=== PATIENT | female | born 1990 | race Caucasian/White ===

== ENCOUNTER 2016-12-11 16:58 | Emergency (ER) | payer OTHER ==
[~2016-12-11] VITALS: Ht 165.1 cm; Wt 95.3 kg
[~2016-12-11 16:58] MED LIST: [UNRECOGNIZED DRUG - SUPPLY] IU
[2016-12-11 17:12] VITALS: BP 114/68
--- NOTE | 2016-12-11 17:50 | NUR ---
Patient ambulated to bed 09.
--- NOTE | 2016-12-11 18:10 | NUR ---
PATIENT BIB SELF C/O BLOOD IN STOOLS X 2 WEEKS WITH INCREASED FATIGUE X 3 DAYS.PT STATES SHE HAS ABDOMINAL PAIN EVERYTIME SHE GOES TOT HE RESTROOM. . DENIES N/V/D; SKIN IS PINK/WARM/DRY; AAOX4 WITH EVEN AND STEADY GAIT; LUNGS CLEAR BL; HR EVEN AND REGULAR; PT DENIES ANY FEVER, CP, SOB, OR COUGH AT THIS TIME; PATIENT STATES PAIN OF 0/10 AT THIS TIME; PATIENT POSITIONED FOR COMFORT; HOB ELEVATED; BEDRAILS UP X2; BED DOWN. ER MD MADE AWARE OF PT STATUS.
--- NOTE | 2016-12-11 18:13 | NUR ---
RECTAL EXAM DONE BY DR CHINCHILLA AND CHARGE NURSE DAINA.
[2016-12-11 18:16] LABS: EOSINOPHILS # (AUTO) 0.2 K/uL (0-0.4); HEMOGLOBIN 13.6 g/dL (12.0-16.0); WHITE BLOOD COUNT (AUTO) 8.7 K/uL (4.8-10.8)
[2016-12-11 18:21] LABS: BASOPHILS # (AUTO) 0.4 K/uL (0.00-0.22); HEMATOCRIT 40.8 % (36-48); LYMPHOCYTES # (AUTO) 2.2 K/uL (2.5-16.5); MEAN CORPUSCULAR HEMOGLOBIN 29 pg (27-31); MEAN CORPUSCULAR HGB CONC 33 g/dL (33-37); MEAN CORPUSCULAR VOLUME 88 fL (80-94); MONOCYTES # (AUTO) 0.7 K/uL (0.8-1.0); NEUTROPHILS # (AUTO) 5.2 K/uL (1.8-7.7); PLATELET COUNT (AUTO) 189 K/uL (140-450); RED BLOOD CELL COUNT(AUTO) 4.64 MIL/uL (4.20-5.40); RED CELL DISTRIBUTION WIDTH 12.1 % (11.6-13.7)
[2016-12-11 18:29] LABS: ANION GAP 8.8 (8-16); CARBON DIOXIDE 31.3 mmol/L (21-32); CREATININE 0.9 mg/dL (0.6-1.3); POTASSIUM 4.1 mmol/L (3.5-5.1)
[2016-12-11 18:35] LABS: ALBUMIN 3.5 g/dL (3.4-5.0); TOTAL BILIRUBIN 0.2 mg/dL (0.0-1.0)
--- NOTE | 2016-12-11 18:39 | NUR ---
PT RESTING ON BED;NO ACUTE DISTRESS NOTED;WILL CONTINUE TO MONITOR PT.
[2016-12-11 18:58] VITALS: BP 117/75
--- NOTE | 2016-12-11 18:58 | NUR ---
Patient discharged with v/s stable. Written and verbal after care instructions given and explained. Patient alert, oriented and verbalized understanding of instructions. with steady gait. All questions addressed prior to discharge. ID band removed. Patient advised to follow up with PMD. Rx of ANUSOL given. Patient educated on indication of medication including possible reaction and side effects. Opportunity to ask questions provided and answered.
== END 2016-12-11 18:58 | disposition home or self-care (01) ==
LOC: MED 16:58
DX: K62.5 Hemorrhage of anus and rectum (principal); K64.4 Residual hemorrhoidal skin tags; Z88.0 Allergy status to penicillin
CPT/HCPCS: 36415; 80053; 81025; 85025; 93005; 99285

== ENCOUNTER 2017-07-09 22:11 | Emergency (ER) | payer OTHER ==
[~2017-07-09] VITALS: Ht 165.1 cm; Wt 97.5 kg
[2017-07-09 22:19] VITALS: BP 125/69
[2017-07-09] MEDS ORDERED: KETOROLAC 60 MG/2 ML VIAL IM ONE (22:25)
[2017-07-09 23:11] VITALS: BP 128/89
== END 2017-07-09 23:04 | disposition home or self-care (01) ==
LOC: MED 22:11
DX: N39.0 Urinary tract infection, site not specified (principal); Z88.0 Allergy status to penicillin
CPT/HCPCS: 81002; 81025; 99283

== ENCOUNTER 2018-03-25 12:42 | Emergency (ER) | payer OTHER ==
[~2018-03-25] VITALS: Ht 165.1 cm; Wt 99.3 kg
[2018-03-25 12:56] VITALS: BP 118/74
--- NOTE | 2018-03-25 12:58 | NUR ---
TO LOBBY A/W BED, KATALINA GARNICA NOTED
[2018-03-25 15:02] LABS: APPEARANCE,URINE CLEAR (CLEAR); BILIRUBIN,URINE NEGATIVE (NEGATIVE); BLOOD, URINE NEGATIVE (NEGATIVE); COLOR,URINE YELLOW (YELLOW); LEUKOCYTE ESTERASE ,URINE NEGATIVE (NEGATIVE); NITRITE, URINE NEGATIVE (NEGATIVE); UGLUCOSE NEGATIVE (NEGATIVE)
--- NOTE | 2018-03-25 15:30 | NUR ---
PT AMBULATED TO BED 9
--- NOTE | 2018-03-25 15:50 | NUR ---
PT C/O DYSURIA AND BURNING UPON URINATION 8/10 PAIN THAT RADIATES TO HER BACK X 1 WEEK. +NAUSEA. STATES SHE GETS UTIS FREQUENTLY. PT DENIES N/V/D; SKIN IS INTACT, PINK/WARM/DRY; AAOX4, PERRL, WITH EVEN AND STEADY GAIT; LUNGS CLEAR BL, BREATHING UNLABORED; HR EVEN AND REGULAR, BL PERIPHERAL PULSES PRESENT; BS ACTIVE X4, NO TENDERNESS TO PALPATION, NO HEPATOSPLENOMEGALLY PALPATED, RESONANT TO PERCUSSION; PT DENIES ANY FEVER, CP, SOB, OR COUGH AT THIS TIME; PT STATES 8/10 PAIN AT THIS TIME; VSS; PATIENT POSITIONED FOR COMFORT; HOB ELEVATED; BEDRAILS UP X2; BED DOWN.
--- NOTE | 2018-03-25 17:00 | NUR ---
PT ON BED IN SUPINE POSITION, EYES OPEN, GCS 15. RESPIS E/U, DENIES CP/SOB AT THIS TIME. NO IDENTIFIED REQUESTS.
[2018-03-25] MEDS ORDERED: IBUPROFEN 800 MG TAB PO ONE (17:40)
[2018-03-25 17:54] VITALS: BP 110/80
--- NOTE | 2018-03-25 17:54 | NUR ---
Patient discharged with v/s stable. Written and verbal after care instructions given and explained. Patient alert, oriented and verbalized understanding of instructions. Ambulatory with steady gait. All questions addressed prior to discharge. ID band removed. Patient advised to follow up with PMD. Rx of Pyridium given. Patient educated on indication of medication including possible reaction and side effects. Opportunity to ask questions provided and answered.
== END 2018-03-25 17:54 | disposition home or self-care (01) ==
LOC: MED 12:42
DX: N30.90 Cystitis, unspecified without hematuria (principal); Z88.0 Allergy status to penicillin
CPT/HCPCS: 81003; 81025; 99283

== ENCOUNTER 2019-12-04 06:45 | Emergency (ER) | payer MEDICAID ==
[~2019-12-04] VITALS: Ht 165.1 cm; Wt 95.3 kg
[~2019-12-04 06:45] MED LIST changes: +HYDR-5122 PO; +LACT10CA PO; +SULF-59 PO; -[UNRECOGNIZED DRUG - SUPPLY] IU
[2019-12-04 06:46] VITALS: BP 104/72
--- NOTE | 2019-12-04 06:46 | NUR ---
PT AMBULATED TO BED 9 WITH STEADY GAIT.
[2019-12-04] MEDS ORDERED: IBUPROFEN CHILDRENS 100 MG/5 ML UDC PO ONE (07:20)
[2019-12-04] MEDS ORDERED: DEXAMETHASONE 10 MG/ML VIAL PO ONE (07:20)
--- NOTE | 2019-12-04 07:30 | NUR ---
29/F SORE THROAT X3 DAYS WITH SNEEZING, WATERY EYES, AND INTERMITTENT NON PRODUCTIVE COUGH A/W ITCHY THROAT. DENIES FEVER, SOB, AND POSITIVE COVID CONTACTS. AFEBRILE, VSS. NAD. PRESENTS TO ER WITH SON WHO C/O SORE THROAT. MED HX: DENIES NO RX NKA
--- NOTE | 2019-12-04 07:31 | NUR ---
CONFIRMED WITH DR. ÓSCAR FRANCES TO GIVE [facility] CHILDREN'S TO PT
--- NOTE | 2019-12-04 07:50 | NUR ---
COVID SWAB OBTAINED AND DROPPED OFF AT LAB W/ PAPERWORK
[2019-12-04 08:00] VITALS: BP 104/72
--- NOTE | 2019-12-07 11:29 | NUR ---
Negative covid results received from lab.
== END 2019-12-04 07:59 | disposition home or self-care (01) ==
LOC: MED 06:45
DX: J02.9 Acute pharyngitis, unspecified (principal); Z20.828 Contact with and (suspected) exposure to other viral communicable diseases
CPT/HCPCS: 99283; J1100; U0003